=== PATIENT | female | born 1965 | race Asian ===

== ENCOUNTER 2021-02-21 14:22 | Emergency (ER) | payer OTHER, BC ==
[2021-02-21 14:44] VITALS: BP 112/73; PULSE 78; TEMP 97; BMI 26.2
[2021-02-21] MEDS ORDERED: IBUPROFEN 600 MG TABLET (FP) PO ONE ×2 (14:58→15:05)
== END 2021-02-21 17:24 | disposition home or self-care (01) ==
LOC: JER 14:22
DX: J34.89 Other specified disorders of nose and nasal sinuses (principal); M54.2 Cervicalgia; M79.641 Pain in right hand; V87.7XXA Person injured in collision between other specified motor vehicles (traffic), initial encounter; Y92.9 Unspecified place or not applicable
CPT/HCPCS: 70486-TC; 72125-TC; 73130-TC-RT-FY; 99284-25